=== PATIENT | male | born 1960 | race Caucasian/White ===

== ENCOUNTER 2018-08-08 10:49 | Day surgery (SDC) | payer BC ==
[2018-08-03 10:45] VITALS: BMI 28.8
[~2018-08-08 10:49] MED LIST: LACTATED RINGERS 1,000 ML IV SCH
[2018-08-08 11:07] VITALS: TEMP 97.8
[2018-08-08] MEDS ORDERED: LACTATED RINGERS 1,000 ML IV ONE (11:19)
[2018-08-08] MEDS ORDERED: LIDOCAINE 1% 20 ML VIAL (10MG/ML) FOR IV START INTRADERMA ONE (11:19)
[2018-08-08] MEDS ORDERED: PROPOFOL 10 MG/ML 20 ML VIAL IV ONE (12:21)
[2018-08-08] MEDS ORDERED: LIDOCAINE 1% INJ 10MG/ML (20 ML MDV) ONE (12:21)
[2018-08-08 13:02] VITALS: PULSE 76
--- NOTE | 2018-08-08 13:05 | P.PCN ---
Date of Procedure: 08/08/18 Procedure(s) Performed: Procedure: Colonoscopy and polypectomy. Preoperative diagnosis: Hemoccult-positive stools. Postoperative diagnosis: Multiple small and medium-sized polyps snared but no large polyps or cancer. Preparation: HalfLytely prep. Sedation: Was provided by anesthesia. Brief clinical history: The patient is a 58-year-old male who is scheduled for this evaluation because of finding of Hemoccult positive stools. The patient has no abdominal complaints, overt bleeding or anemia. No family history of colon cancer. This would be his first colonoscopy. Procedure: With the patient on his left lateral decubitus position and after informed consent and adequate sedation, the perianal area was inspected and it did not show any fissures or fistulas. There were no masses felt on digital rectal examination. The Olympus CFH 190L video colonoscope was then inserted in the rectum in the usual fashion and advanced to the cecum. There was a small polyp in the cecum which was snared and retrieved by suction. There was a medium-sized polyp around the hepatic flexure which was removed with the snare piecemeal. There were two small/medium-sized polyps in the sigmoid and rectum which were snared and retrieved by suctioning to the tip of the endoscope and withdrawing the endoscope and re-starting the examination. The mucosa appeared healthy. No other obvious pathology was noted. I retroflexed the endoscope in the rectum before the endoscope was withdrawn. The patient tolerated the procedure well. Plan: The patient was reassured. Will await pathology results. I anticipate repeating his colonoscopy in 2-3 years depending on pathology results. I will keep you updated on his progress.
[2018-08-08 13:18] VITALS: BP 118/77; RESP 18
== END 2018-08-08 13:45 | disposition home or self-care (01) ==
LOC: ORWHC2ENDO 10:49
DX: D12.0 Benign neoplasm of cecum (principal); D12.3 Benign neoplasm of transverse colon; D12.5 Benign neoplasm of sigmoid colon; D12.8 Benign neoplasm of rectum
CPT/HCPCS: 88305; 45385; J2001; J2704